=== PATIENT | female | born 1970 | race Caucasian/White ===

== ENCOUNTER 2021-02-24 09:18 | Outpatient (CLI) | payer OTHER, SELFPAY ==
--- NOTE | 2021-02-24 09:35 | MM_ITS ---
WS: [id number] BILATERAL DIGITAL SCREENING MAMMOGRAPHY WITH CAD CLINICAL INFORMATION: SCREENING HISTORY: Screening mammogram. No current complaints. COMPARISON: October 16, 2018 TECHNIQUE: Bilateral CC and MLO views. FINDINGS: Scattered fibroglandular densities bilaterally. Previously described and evaluated 2 mm asymmetric de nsity central right breast is unchanged. A few tiny punctate calcifications. No suspicious focal mass , asymmetry, calcifications, or architectural distortion. No evidence of malignancy. MM/[place] [id number] IMPRESSION: BI-RADS: 2-Benign FOLLOW UP: 1 Year Follow-up Recommend return to annual screening mammography.
== END 2021-02-24 09:19 | disposition home or self-care (01) ==
LOC: RADSHAW 09:30
PROVIDERS: Visit Provider Obstetrics & Gynecology
DX: Z12.31 Encounter for screening mammogram for malignant neoplasm of breast (principal)
CPT/HCPCS: 77067

== ENCOUNTER → 2021-04-20 14:43 | Outpatient (BNVA) | payer BC, SELFPAY | PROVIDERS: PCP Nurse Practitioner Family; Referring Provider Nurse Practitioner Family; Visit Provider Surgery | DX: Z11.52 Encounter for screening for COVID-19 (principal); L72.9 Follicular cyst of the skin and subcutaneous tissue, unspecified | CPT/HCPCS: 87635 ==

== ENCOUNTER 2021-04-26 10:00 | Day surgery (SDC) | payer BC, SELFPAY ==
[2021-04-25 09:47] VITALS: BMI 23.5
[2021-04-26] VITALS (8 sets, daily range): BP systolic 108–135; BP diastolic 64–80; PULSE 63–74; RESP 18; TEMP 36.2–36.6; O2SAT 95–100
[2021-04-26] MEDS: sodium chloride 0.9% 1,000 ML 30 ML IV (10:36)
[2021-04-26] MEDS: acetaminophen 1,000 MG/100 ML PIGGYBACK 400 MG IV (10:36)
--- NOTE | 2021-04-26 11:30 | ANES.PREANE2 ---
Pre-Anesthetic Assessment Pre-Anesthetic Assessment: Height/Weight: Height 1.7 m Weight 68.039 kg Temp Pulse Resp BP Pulse Ox 97.6 F 65 18 118/76 98 04/26/21 10:20 04/26/21 10:20 04/26/21 10:20 04/26/21 10:20 04/26/21 10:20 Preop Diagnosis: Left shoulder mass Proposed Procedure: Operation Date: 04/26/21 11:15 Proposed Procedures p Excision Mass back [id number]; l72.9(Not Applicable) - Ismael Rogers MD Was Beta Dexter taken within 24 hours: N/A Was Clonidine taken within 24 hours: N/A Last intake: Intake Last Liquid Date 04/25/21 Last Liquid Time 20:00 Last Solid Date 04/25/21 Last Solid Time 20:00 Social: Social History: No alcohol Exam: Pre-Anes Outpt Exam: alert, oriented x 3, clear to auscultation bilaterally and regular rate & rhythm Airway: Submandibular: WNL Cervical ROM: WNL MP: 1 Dentition: Full History/ROS: No significant complaints Pulmonary: Pulmonary: None reported CV/HEM: CV/HEM: None reported : : None reported Hepatic: Hepatic: None reported GI: GI: None reported Metabolic: Metabolic: None reported Musc/skel: Musc/skel: None reported Neuropsych: Neuropsych: None reported Anesthetic Plan: ASA status: 1 Anesthesia: Anesthesia Evaluation and General Risk of > 500 ml blood loss (7ml/kg in children): No Meds/Allergies Current Medications: Current Medications Generic Name Dose Route Start Last Admin Trade Name Freq PRN Reason Stop Dose Admin Sodium Chloride 1,000 mls @ 30 ml s/hr 04/26/21 10:15 04/26/21 10:36 Sodium Chloride 0.9% IV 04/27/21 10:14 30 mls/hr .Q24H RENARD Administration Data Anesthesia Cardiac Studies: No Data to Display
--- NOTE | 2021-04-26 11:34 | W.PM.OPSUD ---
Surgery/Procedure H&P Update DATE OF PROCEDURE: April 26, 2021 DATE H&P PERFORMED: 04/20/21 H&P UPDATE INFORMATION: I have reviewed H&P completed within last 30 days, I have examined patient prior to procedure and No changes to prior documentation PREOP DIAGNOSIS: Left shoulder mass PRIMARY INDICATION FOR PROCEDURE: The same PLANNED PROCEDURE: Operation Date: 04/26/21 11:15 Proposed Procedures p Excision Mass back [id number]; l72.9(Not Applicable) - Ismael Rogers MD
[2021-04-26] MEDS: lidocaine 2% INJ 20 mL INJECTION (12:00)
--- NOTE | 2021-04-26 12:07 | PM.OP ---
Operative Report Date of procedure: April 26, 2021 Pre-op Diagnosis: Left shoulder mass Post-op diagnosis: other (Likely infected sebaceous cyst) Procedure Done: Excision of left upper back sebaceous cyst Implants: Packing with half-inch iodoform Specimens removed/disposition: Left upper back mass measures 1.5 x 1.2 cm Residual necrotic subcutaneous tissues were added to the specimen Surgeon: Ismael Rogers Interventional Radiology Technologist: senior nuclear medicine technologist Arlet Circulating nurse Chelsea Snowden Anesthesia: MAC (vest maker Quan) Estimated blood loss (mL): 5 Condition: stable Disposition: same day Procedure: After identifying the patient holding area, left shoulder back mass was marked before the procedure by myself, patient was then taken to the operative suite, was placed in right lateral position, IV antibiotics were given per protocol,IV propofol was infused by the anesthesia provider, prep and drape of the left upper and mid back regions were done under the usual sterile technique. Time-out was done verifying the patient's name/date of /planned procedure and destination after the procedure, all were in agreement. After palpation of both alan, discharging sebum was appreciated with an area of 1.5 x 1.2 cm. Infiltration of lidocaine 2%. I did an elliptical incision on top of the mass including the punctum. I was able to dissect using sharp dissection and the whole cyst was excised from the surrounding tissues, the specimen was sent for permanent pathology in specimen container. Thorough irrigation of the cavity was done and hemostasis, followed by 2/0 nylon transverse mattress for approximating the skin edges and packing using half inch iodophor was used towards the center of the wound. Followed by pressure dressing. Lidocaine 2% was injected at the site of the incisions, followed by Band-Aids Patient tolerated the procedure well, count of instruments, needles and sponges were completed at the end of the procedure. And then patient was taken to the recovery area in stable condition. I was present for the whole entire procedure
--- NOTE | 2021-04-26 12:15 | P.PCN_ITS ---
PACU note PACU note: VSS, Good respiratory effort, report to MANAGER INVENTORY MANAGEMENT Post-Anesthesia Exam: awake
--- NOTE | 2021-04-26 12:15 | PM.PACU ---
PACU note PACU note: VSS, Good respiratory effort, report to PEDIATRIC OCCUPATIONAL THERAPIST Post-Anesthesia Exam: awake
[2021-04-26] MEDS: HYDROcodone-acetaminophen 5-325 mg Tablet 1 TAB PO (12:58)
--- NOTE | 2021-04-26 15:39 | ANE.PACU2 ---
Inpatient post-anesthesia follow up: Airway intact: Yes Vital signs: Temperature 97.5 F Pulse Rate 63 Respiratory Rate 18 Blood Pressure 135/80 Pulse Oximetry 100 Oxygen Delivery Me thod Room Air Oxygen Flow Rate Fraction of Inspir ed Oxygen Hydration adequate: Yes Nausea and vomiting: No Pain level: 1 Mental status: Baseline
== END 2021-04-26 13:27 | disposition home or self-care (01) ==
PROVIDERS: PCP Nurse Practitioner Family; Visit Provider Surgery
PROC: (CPT 11402; principal; 2021-04-26 11:15)
DX: L72.3 Sebaceous cyst (principal)
CPT/HCPCS: 11402; 12031; 88304; J0690; J2704; J3010; J7030

== ENCOUNTER → 2022-07-03 14:39 | Outpatient (BNVA) | payer BC, SELFPAY | PROVIDERS: PCP Nurse Practitioner Family; Visit Provider Nurse Practitioner Family | DX: N39.0 Urinary tract infection, site not specified (principal); M17.11 Unilateral primary osteoarthritis, right knee | CPT/HCPCS: 81000; 87077; 87086; 87184 ==

== ENCOUNTER → 2022-07-13 15:53 | Outpatient (BNVA) | payer BC, SELFPAY | PROVIDERS: PCP Nurse Practitioner Family; Visit Provider Nurse Practitioner Family | DX: N39.0 Urinary tract infection, site not specified (principal) | CPT/HCPCS: 87086 ==

== ENCOUNTER 2022-12-25 15:15 | Outpatient (CLI) | payer BC, SELFPAY ==
--- NOTE | 2022-12-25 15:24 | MM_ITS ---
WS: [id number] BILATERAL 3D TOMOSYNTHESIS DIGITAL SCREENING MAMMOGRAPHY WITH CAD CLINICAL INFORMATION: SCREENING HISTORY: Screening mammogram. No current complaints. COMPARISON: 2020 TECHNIQUE: Bilateral CC and MLO views. FINDINGS: The breasts are composed of heterogeneous fibroglandular density tissue, which can limit the detectio n of small underlying mass lesions. No suspicious mass, asymmetry, calcifications, or architectural d istortion. No evidence of malignancy. Tiny incidental punctate calcifications. IMPRESSION: MM/[place] [id number] BI-RADS: 2-Benign FOLLOW UP: 1 Year Follow-up Recommend return to annual screening mammography.
== END 2022-12-25 15:16 | disposition home or self-care (01) ==
PROVIDERS: PCP Nurse Practitioner Family; Visit Provider Obstetrics & Gynecology
DX: Z12.31 Encounter for screening mammogram for malignant neoplasm of breast (principal)
CPT/HCPCS: 77063; 77067

== ENCOUNTER 2025-03-25 11:56 | Outpatient (CLI) | payer BC, SELFPAY ==
--- NOTE | 2025-03-25 12:00 | MM_ITS ---
WS: [id number] BILATERAL 3D TOMOSYNTHESIS DIGITAL SCREENING MAMMOGRAPHY WITH CAD CLINICAL INFORMATION: SCREENING HISTORY: Screening mammogram. No current complaints. COMPARISON: 2022 TECHNIQUE: Bilateral CC and MLO views. FINDINGS: The breasts are composed of heterogeneous fibroglandular density tissue, which can limit the detection of small underlying mass lesions. No suspicious mass, asymmetry, calcifications, or architectural distortion. No evidence of malignancy. MM/MM scr tomosynthesis [id number] IMPRESSION: DENSITY: The breasts are heterogeneously dense, which may obscure small masses. BI-RADS: 1 - Negative FOLLOW UP: 1 Year Follow-up Recommend return to annual screening mammography.
== END 2025-03-25 11:57 | disposition home or self-care (01) ==
LOC: MOBLMAM 12:00
PROVIDERS: PCP Nurse Practitioner Family; Visit Provider Obstetrics & Gynecology
DX: Z12.31 Encounter for screening mammogram for malignant neoplasm of breast (principal); R92.323 Mammographic fibroglandular density, bilateral breasts; R92.333 Mammographic heterogeneous density, bilateral breasts
CPT/HCPCS: 77063; 77067